=== PATIENT | female | born 1960 | race Caucasian/White ===

== ENCOUNTER 2017-08-05 08:50 | Day surgery (SDC) | payer OTHER ==
[2017-08-05] MEDS ORDERED: Lactated Ringer's 1,000 ML IV ONE (09:22)
[2017-08-05] MEDS ORDERED: Propofol 10 mg/ml Inj (20 ML) ONE (09:56)
[2017-08-05] MEDS ORDERED: Midazolam 2 MG/2 ML VIAL ONE (09:57)
[2017-08-05 10:29] VITALS: TEMP 98
[2017-08-05 10:49] VITALS: BP 108/62; PULSE 78; RESP 17; O2SAT 100
== END 2017-08-05 10:36 | disposition home or self-care (01) ==
LOC: H.ENDO 08:50
PROVIDERS: ATTEND Internal Medicine Gastroenterology
DX: Z12.11 Encounter for screening for malignant neoplasm of colon (principal); E03.9 Hypothyroidism, unspecified; E66.9 Obesity, unspecified; K64.8 Other hemorrhoids; K57.30 Diverticulosis of large intestine without perforation or abscess without bleeding
CPT/HCPCS: 45378; J2250; J2704; J7120